=== PATIENT | female | born 1960 | race Caucasian/White ===

== ENCOUNTER → 2017-04-20 | Outpatient (CLI) | payer BC ==
[~2017-04-20] MED LIST: IOPAMIDOL 370 MG/ML 200 ML INFUS..BTL INJ ONE; SODIUM CHLORIDE 0.9% 50ML 50 ML ONE
--- NOTE | 2017-04-24 08:03 | Diagnostic Imaging Report ---
EXAMINATION: CT angiography of the chest with contrast. TECHNIQUE: Spiral CT images of the chest were performed from the lung apices to the level of the adrenal glands after the intravenous administration of 100 cc Isovue-[id number]. Coronal and sagittal reformatted images were obtained. COMPARISON: None. CLINICAL HISTORY:Thoracic aortic aneurysm DISCUSSION: Vasculature: Measurements of the thoracic aorta are as follows: Aortic annulus: 2.6 cm Sinuses of Valsalva: 3.8 cm (the sinotubular junction is preserved) Proximal ascending thoracic aorta: 3.2 cm Mid ascending thoracic aorta: 4.1 cm Proximal aortic arch: 3.5 cm Mid aortic arch: 3 cm Proximal descending thoracic aorta 2.6 cm Mid descending thoracic aorta: 2.5 cm Distal descending thoracic aorta 2.4 cm. There is no acute aortic pathology. Specifically, no evidence of dissection, pseudoaneurysm, or mediastinal hematoma. There is no significant atherosclerotic plaque within the aorta as visualized. The great vessel origins are normal in caliber and configuration. This study was not optimized for detection of pulmonary emboli; however, the main pulmonary artery is patent without filling defect. No pericardial effusion. LINES/TUBES: None. LUNGS AND AIRWAYS: 2 mm nodule laterally within the right upper lobe seen on series 5 image 25. 4 mm groundglass nodule medially within the superior segment of the right lower lobe seen on series 5 image 20. Lingular and bilateral lower lobe scar or subsegmental atelectasis. No airspace consolidation, bronchiectasis, or gross fibrotic change. Trachea, mainstem bronchi, and central lobar and segmental bronchi are patent. PLEURA: No pneumothorax or pleural effusions. HEART AND MEDIASTINUM: The thyroid gland is normal. No axillary, hilar, or mediastinal lymphadenopathy. LYMPH NODES: There is no mediastinal, hilar or axillary lymphadenopathy. ABDOMEN: There are multiple low-attenuation lesions scattered throughout the visualized portions of the liver, all of which have average internal attenuation less than 20 Hounsfield units compatible with simple cysts. The largest lesion in the left lobe measures 2.5 cm; the largest lesion in the right lobe is partially visualized in segment 6 and measures 2.9 cm. The visualized portions of the spleen, pancreas, adrenal glands, and kidneys are unremarkable. BONES AND SOFT TISSUES: No osseous destructive lesions. Mild multilevel degenerative disc changes of the thoracic spine. 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 No acute aortic pathology. Right upper and lower lobe pulmonary nodules measuring up to 4 mm as described above. If the patient is at high risk for malignancy, CT scan of the chest without contrast in one year may be obtained to assess for stability. Multiple hepatic cysts. Signed by: Dr. Preet Deluca M.D. on 04/24/2017 7:59 AM
== END ==
LOC: CT 16:43
PROVIDERS: ATTEND Internal Medicine Interventional Cardiology
DX: I71.2 Thoracic aortic aneurysm, without rupture (principal)
CPT/HCPCS: 71275; Q9967

== ENCOUNTER → 2024-10-03 | Day surgery (SDC) | payer OTHER ==
[2024-10-01 15:27] LABS: BASOPHILS % 0.2 % (0.0-1.0); HEMOGLOBIN 13.4 g/dL (12.0-16.0); LYMPHOCYTES # (AUTO) 1.2 (1.0-3.2); LYMPHOCYTES % 22.2 % (18.0-39.1); MEAN CORPUSCULAR HEMOGLOBIN 30.9 pg (28-32); MEAN CORPUSCULAR HGB CONC 33.5 g/dL (31-35); MEAN CORPUSCULAR VOLUME 92.4 fL (81-99); MONOCYTES # (AUTO) 0.5 (0.2-0.8); MONOCYTES % 9.6 % (4.4-11.3); NEUTROPHILS # (AUTO) 3.6 (2.1-6.9); NEUTROPHILS % 67.8 % (38.7-80.0); PLATELET COUNT 180 x10e3/uL (140-360); RED BLOOD COUNT 4.33 x10e6/uL (3.6-5.1); RED CELL DISTRIBUTION WIDTH 12.5 % (11.7-14.4); WHITE BLOOD COUNT 5.31 x10e3/uL (4.8-10.8)
[~2024-10-03] MED LIST changes: +ACETAMINOPHEN 1000 MG/100 ML 100 ML IV ONE; +BUPIVACAINE/EPI 0.5% 30ML SDV-MPF INJ ONE; +DEXAMETHASONE SOD PHOS INJ 4 MG/ML SDV ONE; +FENTANYL CITRATE/PF 100MCG/2 ML INJ ONE; +HYDROCODONE/APAP 7.5MG-325MG 1 EA TAB ONE; -IOPAMIDOL 370 MG/ML 200 ML INFUS..BTL INJ ONE; +KETOROLAC TROMETHAMINE 30 MG/ML VIAL ONE; +LIDOCAINE HCL 2% LOCAL INJ 5 ML SDV VIAL INJ ONE; +MEPERIDINE HCL INJ 25 MG/ML VIAL ONE; +MIDAZOLAM HCL 2 MG/2 ML VIAL ONE; +ONDANSETRON HCL INJ 2MG/ML 2ML 2 MG/ML VIAL ONE; +PHENYLEPHRINE HCL 1% 10 MG/ML VIAL ONE; +PROPOFOL IV EMULSION 10 MG/ML 20 ML VIAL ONE; -SODIUM CHLORIDE 0.9% 50ML 50 ML ONE
[2024-10-03] MEDS: LACTATED RINGER'S 1,000 ML ONE (07:45)
[2024-10-03] MEDS: CEFAZOLIN SODIUM 2 GM ONE (07:46)
[2024-10-03] MEDS: MEPERIDINE HCL INJ 25 MG/ML VIAL IV ONE (12:08)
[2024-10-03] MEDS: HYDROCODONE/APAP 7.5MG-325MG 1 EA TAB PO ONE (12:22)
[2024-10-03 12:50] VITALS: BP 118/76; PULSE 60; RESP 18; O2SAT 99
== END | disposition home or self-care (01) ==
LOC: OR 07:02
PROVIDERS: ATTEND Podiatrist Foot Surgery
DX: S93.321A Subluxation of tarsometatarsal joint of right foot, initial encounter (principal); M21.611 Bunion of right foot; E66.01 Morbid (severe) obesity due to excess calories; Z01.810 Encounter for preprocedural cardiovascular examination; Z01.812 Encounter for preprocedural laboratory examination; Z01.818 Encounter for other preprocedural examination
CPT/HCPCS: 28292; 28730; 36415; 71046; 85025; 93005; C1713 ×2; J0131; J1100; J1885; J2003; J2175; J2250; J2371; J2405; J2704; J3010; J7121

== ENCOUNTER 2025-01-23 15:27 | Emergency (ER) | payer OTHER | END 2025-01-23 17:52 | disposition left against medical advice (07) | LOC: ER 16:15 | DX: L76.22 Postprocedural hemorrhage of skin and subcutaneous tissue following other procedure (principal) ==

== ENCOUNTER → 2025-01-23 | Day surgery (SDC) | payer OTHER ==
[~2025-01-23] MED LIST changes: +BUPIVACAINE LIPOSOME/PF 266 MG/20 ML IJ ONE; -BUPIVACAINE/EPI 0.5% 30ML SDV-MPF INJ ONE; +EPHEDRINE SULFATE INJ 50 MG/ML VIAL ONE; -HYDROCODONE/APAP 7.5MG-325MG 1 EA TAB ONE; -KETOROLAC TROMETHAMINE 30 MG/ML VIAL ONE; -MEPERIDINE HCL INJ 25 MG/ML VIAL ONE; -MIDAZOLAM HCL 2 MG/2 ML VIAL ONE; -PHENYLEPHRINE HCL 1% 10 MG/ML VIAL ONE; +SEVOFLURANE INHAL SOLN 250 ML PEN BTL ONE
[2025-01-23] MEDS: CEFAZOLIN SODIUM 2 GM ONE (06:04)
[2025-01-23] MEDS: LACTATED RINGER'S 1,000 ML ONE (06:04)
[2025-01-23 09:59] VITALS: TEMP 97.5
[2025-01-23] MEDS: HYDROCODONE/APAP 5MG-325MG TAB ONE (10:42)
[2025-01-23 11:15] VITALS: BP 120/81; PULSE 71; RESP 18; O2SAT 97
== END | disposition home or self-care (01) ==
LOC: OR 05:32
PROVIDERS: ATTEND Podiatrist Foot Surgery
DX: S93.322A Subluxation of tarsometatarsal joint of left foot, initial encounter (principal); Q66.212 Congenital metatarsus primus varus, left foot; X58.XXXA Exposure to other specified factors, initial encounter; Z68.41 Body mass index [BMI] 40.0-44.9, adult; Z01.810 Encounter for preprocedural cardiovascular examination
CPT/HCPCS: 28292; 28730; 93005; C1713; J0131; J0666; J1100; J2003; J2405; J2704; J3010; J7121; 76000